=== PATIENT | female | born 1995 | race African-American/Black ===

== ENCOUNTER 2019-11-09 10:14 | Emergency (ER) | payer OTHER, MEDICAID ==
[2019-11-09 10:22] VITALS: BP 118/64
--- NOTE | 2019-11-09 11:04 | ER Document Report ---
ED Medical Screen (RME) - General Chief Complaint: Low Back Pain Stated Complaint: LOWER BACK PAIN/SPOTTING Time Seen by Provider: 11/09/19 10:55 TRAVEL OUTSIDE OF THE [place] IN LAST 30 DAYS: No - HPI Notes: 11/09/19 11:04 24-year-old female 2 para 1 who is 14 weeks presents the emergency room for complaints of lower back pain that is been occurring for the last 3 weeks, comes and goes, occurred while she was at work. Denies any trauma. Patient has not tried any heat or Tylenol. Patient has been seen by her primary care provider, they did not do any further evaluation, advised rest. Patient was also seen by her MANAGER FOREIGN who advised her to go to the primary care provider. Patient states that she started with right suprapubic pain only with urination last night and once this morning. Denies fevers, chills, chest pain,palpitations, shortness of breath, dyspnea, nausea, vomiting, diarrhea, abdominal pain, hematuria,blurred vision, double vision, loss of vision, speech changes, LH, dizziness, syncope, headaches, wheezing, ST, URI, neck pain, weakness, bowel or bladder dysfunction, saddle anesthesia, numbness or tingling in bilateral upper or lower extremities equally, muscle paralysis, weakness in bilateral upper or lower extremities equally or rash. - Related Data Allergies/Adverse Reactions: No Known Allergies Allergy (Unverified 11/09/19 10:41) Past Medical History - General Information source: Patient - Social History Chew tobacco use (# tins/day): No Frequency of alcohol use: None Drug Abuse: None Review of Systems - Review of Systems Constitutional: No symptoms reported EENT: No symptoms reported Cardiovascular: No symptoms reported Respiratory: No symptoms reported Gastrointestinal: No symptoms reported Genitourinary: No symptoms reported Female Genitourinary: No symptoms reported Musculoskeletal: See HPI Skin: No symptoms reported Hematologic/Lymphatic: No symptoms reported Neurological/Psychological: No symptoms reported Physical Exam - Vital signs Vitals: Temp Pulse Resp BP Pulse Ox 97.9 F 96 18 118/64 98 11/09/19 10:14 11/09/19 10:14 11/09/19 10:14 11/09/19 10:14 11/09/19 10:14 - Notes Notes: PHYSICAL EXAMINATION: reviewed vital signs by RN GENERAL: Well-appearing, well-nourished and in no acute distress. HEAD: Atraumatic, normocephalic. EYES: Pupils equal round and reactive to light, extraocular movements intact, conjunctiva are normal. ENT: Nares patent, oropharynx clear without exudates. Moist mucous membranes. NECK: Normal range of motion, supple without lymphadenopathy LUNGS: Breath sounds clear to auscultation bilaterally and equal. No wheezes rales or rhonchi. HEART: Regular rate and rhythm without murmurs ABDOMEN: Soft, nontender, nondistended abdomen. No guarding, no rebound. No masses appreciated. Female : deferred Musculoskeletal: Normal range of motion, no pitting or edema. No cyanosis.Pain with flexion and extension at 70 degrees, negative straight leg test Normal hip rotation. DTR +2 in BLE equally. Strength 5 out of 5 both distally and proximally to bilateral lower extremities normal motor and sensory function in BLE equally. Distal pulses + 2 BLE equally. Noted paraspinal tenderness near L2 and L3. Strength 5 out of 5 in bilateral lower extremities equally. no spinal tenderness. No CVA tenderness bilaterally. Femoral pulses + 2 bilaterally and equally. No abrasions, scars, lacerations, ecchymosis of any recent trauma. normal gait. NEUROLOGICAL: Cranial nerves grossly intact. Normal speech, normal gait. Normal sensory, motor exams PSYCH: Normal mood, normal affect. SKIN: Warm, Dry, normal turgor, no rashes or lesions noted. Course - Re-evaluation Re-evalutation: 11/09/19 11:06 Afebrile vital stable no distress. - Vital Signs Vital signs: Temp Pulse Resp BP Pulse Ox 97.9 F 96 18 118/64 98 11/09/19 10:21 11/09/19 10:21 11/09/19 10:21 11/09/19 10:21 11/09/19 10:21
--- NOTE | 2019-11-09 11:28 | ER Document Report ---
HPI - HPI Time Seen by Provider: 11/09/19 10:55 Pain Level: 3 Notes: 24-year-old female 2 para 1 who is 14 weeks presents the emergency room for complaints of lower back pain that is been occurring for the last 3 weeks, comes and goes, occurred while she was at work. Denies any trauma. Patient has not tried any heat or Tylenol. Patient has been seen by her primary care provider, they did not do any further evaluation, advised rest. Patient was also seen by her MANAGER MERCHANDISE who advised her to go to the primary care provider. Patient states that she started with right suprapubic pain only with urination last night and once this morning. Denies fevers, chills, chest pain,palpitations, shortness of breath, dyspnea, nausea, vomiting, diarrhea, abdominal pain, hematuria,blurred vision, double vision, loss of vision, speech changes, LH, dizziness, syncope, headaches, wheezing, ST, URI, neck pain, weakness, bowel or bladder dysfunction, saddle anesthesia, numbness or tingling in bilateral upper or lower extremities equally, muscle paralysis, weakness in bilateral upper or lower extremities equally or rash. REVIEW OF SYSTEMS:reviewed vital signs by RN CONSTITUTIONAL : Denies fever, chills, or sweats. Denies recent illness. EENT: Denies eye, ear, throat, or mouth pain or symptoms. Denies nasal or sinus congestion or discharge. Denies throat, tongue, or mouth swelling or difficulty swallowing. CARDIOVASCULAR: Denies chest pain. Denies palpitations or racing or irregular heart beat. Denies ankle edema. RESPIRATORY: Denies cough, cold, or chest congestion. Denies shortness of breath, difficulty breathing, or wheezing. GASTROINTESTINAL: Denies abdominal pain or distention. Denies nausea, vomiting, or diarrhea. Denies blood in vomitus, stools, or per rectum. Denies black, tarry stools. Denies constipation. GENITOURINARY: Denies difficulty urinating, painful urination, burning, frequency, blood in urine, or discharge. FEMALE GENITOURINARY: Denies vaginal bleeding, heavy or abnormal periods, irregular periods. Denies vaginal discharge or odor. MUSCULOSKELETAL: R sided paraspinal tenderness on palpation. Denies back or neck pain or stiffness. Denies joint pain or swelling. SKIN: Denies rash, lesions or sores. HEMATOLOGIC : Denies easy bruising or bleeding. LYMPHATIC: Denies swollen, enlarged glands. NEUROLOGICAL: Denies confusion or altered mental status. Denies passing out or loss of consciousness. Denies dizziness or lightheadedness. Denies headache. Denies weakness or paralysis or loss of use of either side. Denies problems with gait or speech. Denies sensory loss, numbness, or tingling. Denies seizures. PSYCHIATRIC: Denies anxiety or stress. Denies depression, suicidal ideation, or homicidal ideation. ALL OTHER SYSTEMS REVIEWED AND NEGATIVE. PHYSICAL EXAMINATION: GENERAL: Well-appearing, well-nourished and in no acute distress. HEAD: Atraumatic, normocephalic. EYES: Pupils equal round and reactive to light, extraocular movements intact, conjunctiva are normal. ENT: Nares patent, oropharynx clear without exudates. Moist mucous membranes. NECK: Normal range of motion, supple without lymphadenopathy LUNGS: Breath sounds clear to auscultation bilaterally and equal. No wheezes rales or rhonchi. HEART: Regular rate and rhythm without murmurs ABDOMEN: Soft, right suprapubic tenderness nondistended abdomen. No guarding, no rebound. No masses appreciated. Female : deferred Musculoskeletal: Normal range of motion, no pitting or edema. No cyanosis. Pain with flexion and extension at 90 degrees only, negative straight leg test bilaterally. Normal hip rotation. DTR +2 in BLE equally. Strength 5 out of 5 both distally and proximally to bilateral lower extremities normal motor and sensory function in BLE equally. Distal pulses + 2 BLE equally. Noted paraspinal tenderness near L2 and L3. Strength 5 out of 5 in bilateral lower extremities equally. no spinal tenderness. No CVA tenderness bilaterally. Femoral pulses + 2 bilaterally and equally. No abrasions, scars, lacerations, ecchymosis of any recent trauma. normal gait. NEUROLOGICAL: Cranial nerves grossly intact. Normal speech, normal gait. Normal sensory, motor exams PSYCH: Normal mood, normal affect. SKIN: Warm, Dry, normal turgor, no rashes or lesions noted. Dictation was performed using retickr voice recognition software 11/09/19 11:22 - REPRODUCTIVE Reproductive: REPORTS: : Past Medical History - General Information source: Patient - Social History Smoking Status: Never Smoker Chew tobacco use (# tins/day): No Frequency of alcohol use: None Drug Abuse: None Family History: Reviewed & Not Pertinent Patient has suicidal ideation: No Patient has homicidal ideation: No Vertical Provider Document - INFECTION CONTROL TRAVEL OUTSIDE OF THE [place] IN LAST 30 DAYS: No Course - Re-evaluation Re-evalutation: 11/09/19 16:26 Afebrile, vital signs stable no distress. Nurse's notes reviewed. Urinalysis does show leukoesterase and hematuria no proteinuria or ketones. Lower back pain likely musculoskeletal as is been occurring for the last 3 weeks. Denies any focal neurological deficits. Patient has been seen by MANAGER MERCHANDISE. Patient stated she did want a note for work for reoccurring lower back pain with her . Will start patient on oral antibiotic therapy and perform a urine culture, will call with results. Advised to continue medication, take Tylenol as needed, warm compresses to lower back, back stretches throughout the day. after performing a Medical Screening Examination, I estimate there is LOW risk for EXPANDING OR RUPTURED ABDOMINAL AORTIC ANEURYSM, CAUDA EQUINA SYNDROME, EPIDURAL MASS ABSCESS OR LESION(S), OSTEOMYELITIS,PERSONAL HISTORY OF CANCER, IMMUNOSUPPERSSSION, HISTORY OF IV DRUG USE, FRACTURE, CORD COMPERSSION, CANCER, RETROPERITONEAL BLEED, SPINAL EPIDURAL HEMATOMA, or HERNIATED DISK CAUSING SEVERE SPINAL STENOSIS, thus I consider the discharge disposition reasonable. I have reevaluated this patient multiple times and no significant life threatening changes are noted. The patient and I have discussed the diagnosis and risks, and we agree with discharging home and close follow-up. We also discussed returning to the Emergency Department immediately if new or worsening symptoms occur with the understanding that symptoms and presentations can change. We have discussed the symptoms which are most concerning (e.g., saddle anesthesia, urinary or bowel incontinence or retention, changing or worsening pain) that necessitate immediate return. - Vital Signs Vital signs: Temp Pulse Resp BP Pulse Ox 97.9 F 96 18 118/64 98 11/09/19 10:21 11/09/19 10:21 11/09/19 10:21 11/09/19 10:21 11/09/19 10:21 Discharge - Discharge Clinical Impression: Dysuria, Strain of fascia of lower back Condition: Stable Disposition: HOME, SELF-CARE Instructions: Low Back Pain ([facility]), Muscle Strain ([facility]), ([facility]), Urinary Tract Infection ([facility]), Warm Packs ([facility]) Additional Instructions: Urinalysis does show that you have a UTI, will culture urine. Advised to take Tylenol for lower back pain, apply heat 20 minutes on 20 minutes off, stretching of lower back. Please take antibiotics as directed. Follow up with obgyn and pcp within 24 hours as directed. Return immediately for any new or worsening symptoms. Follow up with primary care provider, call tomorrow to make followup appointment. Prescriptions: Nitrofurantoin Macrocrystal [Macrodantin] 100 mg PO BID #20 capsule Forms: Return to Work Referrals: CATARINO PANTOJA MD [ACTIVE STAFF] - Follow up as needed PILAR MARIN DO [ACTIVE STAFF] - Follow up as needed
[2019-11-09 11:45] LABS: APPEARANCE,URINE CLEAR; BILIRUBIN,URINE NEGATIVE (NEGATIVE); COLOR,URINE STRAW; GLUCOSE, URINE NEGATIVE (NEGATIVE); KETONES,URINE NEGATIVE (NEGATIVE); LEUKOCYTE ESTERASE,URINE SMALL (NEGATIVE); NITRITE,URINE NEGATIVE (NEGATIVE); PROTEIN,URINE NEGATIVE (NEGATIVE); URINE SPECIFIC GRAVITY 1.003; UROBILINOGEN,URINE NEGATIVE mg/dL (<2.0)
== END 2019-11-09 12:09 | disposition home or self-care (01) ==
LOC: ER 10:14
DX: O9A.212 Injury, poisoning and certain other consequences of external causes complicating pregnancy, second trimester (principal); S39.012A Strain of muscle, fascia and tendon of lower back, initial encounter; X58.XXXA Exposure to other specified factors, initial encounter; O26.892 Other specified pregnancy related conditions, second trimester; R30.0 Dysuria; R31.9 Hematuria, unspecified; Z3A.14 14 weeks gestation of pregnancy
CPT/HCPCS: 81001; 99283

== ENCOUNTER 2020-03-26 13:47 | Inpatient (IN) | payer MEDICAID ==
[2020-03-26 15:20] LABS: APPEARANCE,URINE TURBID; BILIRUBIN,URINE NEGATIVE (NEGATIVE); COLOR,URINE AMBER; GLUCOSE, URINE NEGATIVE (NEGATIVE); KETONES,URINE NEGATIVE (NEGATIVE); LEUKOCYTE ESTERASE,URINE SMALL (NEGATIVE); NITRITE,URINE NEGATIVE (NEGATIVE); PROTEIN,URINE 30 mg/dL (NEGATIVE); URINE SPECIFIC GRAVITY 1.024
[2020-03-26 15:37] LABS: URINE AMPHETAMINES SCREEN NEGATIVE; URINE BARBITURATES SCREEN NEGATIVE; URINE BENZODIAZEPINES SCREEN NEGATIVE; URINE COCAINE SCREEN NEGATIVE; URINE MARIJUANA (THC) SCREEN NEGATIVE; URINE METHADONE SCREEN NEGATIVE; URINE PHENCYCLIDINE SCREEN NEGATIVE
[2020-03-26] MEDS ORDERED: BETAMET ACET/BETAMET NA INJ 6 MG/1 ML ONE (16:03)
[2020-03-26] MEDS ORDERED: MAGNESIUM SULFATE 20 GM/500 ML RTUINJ IV ONE (16:04)
[2020-03-26] MEDS ORDERED: MAGNESIUM SULFATE 4 GM/100 ML RTUPB IV ONE ×2 (16:04→16:05)
[2020-03-26] MEDS ORDERED: RINGERS SOLUTION,LACTATED 1,000 ML IV PRN (16:18)
[2020-03-26] MEDS ORDERED: TERBUTALINE SULFATE INJ/PF 1 MG/1 ML SDV SUBCUT ONE (16:33)
[2020-03-26] MEDS ORDERED: TERBUTALINE SULFATE INJ/PF 1 MG/1 ML SDV ONE (16:34)
--- NOTE | 2020-03-26 16:45 | Admission Physical ---
Datetime Report Generated by CPN: 03/26/2020 16:45 CURRENT ADMISSION Chief Complaint: Uterine Contractions Indication for Induction: Not Applicable Admit Impression : , Intrauterine Admit Impression- Other: possible active labor at 33+6 Admit Plan: Admit to Unit; Initiate Labor Protocol ALLERGIES Medication Allergies: No Medication Allergies: No Known Allergies (11/09/2019) Latex: No Latex Allergies OBSTETRICAL HISTORY EDC: 05/08/2020 00:00 : 2 Para: 1 Term: 1 : 0 SAB: 0 IAB: 0 Ectopic: 0 Livin Cesareans: 0 VBACs: 0 Multiple Births: 0 SEE RECORDS Alcohol: No Marijuana : No Cocaine: No Other Illicit Drugs: No Cigarettes: Never Smoker. [id number] PHYSICAL EXAM General: Normal HEENT: Normal Neurologic: Normal Thyroid: Deferred Heart: Normal Lungs: Normal Breast: Deferred Back: Normal Abdomen: Normal Genitourinary Exam: Normal Extremities: Normal DTRs: Deferred Pelvic Type: Adequate Vital Signs: Reviewed VAGINAL EXAM Dilatation: 2 Effacement: 70 Station: -1 Contraction Comments: Q2mins MEMBRANES Pooling: Negative Membranes: Intact FETUS A EGA: 33.6 Monitoring: External US FHR- Baseline: 130 Variability: Moderate 6-25bpm Accelerations: 15X15 Decelerations: None FHR Category: Category I Presentation: Vertex Presentation- Other: by FABIOLA NUNN Admit Comment: with previous deliver at 39weeks. presents today for decreased movement and back pain. found to have contractions and cervical dilation with cervical change from /-1, firm, mid position to ./-1, soft. comgt with dr kearney. P: magnesium sulfate, betamethasone, terbutaline, overnight stay for observation INFORMED CONSENT Assignment: Evette Kearney MD Signature: with User ID: [email or web address] : with User ID: [email or web address]
[2020-03-26 16:55] LABS: ABSOLUTE LYMPHOCYTES (AUTO) 2.4 10^3/uL (0.5-4.7); ABSOLUTE MONOCYTES (AUTO) 0.8 10^3/uL (0.1-1.4); ABSOLUTE NEUT (AUTO) 6.2 10^3/uL (1.7-8.2); BASOPHILS % (AUTO) 0.4 % (0-2); EOSINOPHILS % (AUTO) 0.1 % (0-6); HEMATOCRIT 33.2 % (36.0-47.0); HEMOGLOBIN 10.8 g/dL (12.0-15.5); LYMPHOCYTES % (AUTO) 25.4 % (13-45); MEAN CORPUSCULAR HEMOGLOBIN 20.2 pg (27.0-33.4); MEAN CORPUSCULAR HGB CONC 32.6 g/dL (32.0-36.0); MONOCYTES % (AUTO) 8.7 % (3-13); PLATELET COUNT 146 10^3/uL (150-450); RED BLOOD COUNT 5.34 10^6/uL (3.72-5.28); RED CELL DISTRIBUTION WIDTH 18.1 % (11.5-14.0); SEGMENTED NEUTROPHILS % (AUTO) 65.4 % (42-78); TOTAL CELLS COUNTED % (AUTO) 100 %; WHITE BLOOD COUNT 9.5 10^3/uL (4.0-10.5)
[2020-03-26] MEDS ORDERED: MISOPROSTOL 0.2 MG TABLET ONE (16:57)
[2020-03-26] MEDS ORDERED: OXYTOCIN/NORMAL SALINE 0 UNIT/0 ML RTUINJ ONE (16:57)
[2020-03-26] MEDS ORDERED: OXYTOCIN 10 UNIT/ML VIAL ONE (16:57)
[2020-03-26] MEDS ORDERED: LIDOCAINE 1% INJ-PF (10 MG/ML) 30 ML SDV ONE (16:57)
[2020-03-26] MEDS ORDERED: PENICILLIN G POTASSIUM 5,000,000 UNIT in DEXTROSE 5%-WATER 100 ML IV ONE (17:03)
[2020-03-26] MEDS ORDERED: PENICILLIN G-K 5 MILLION UNIT VIAL ONE ×2 (17:06→20:52)
[2020-03-26] MEDS: MAGNESIUM SULFATE 20 GM/500 ML RTUINJ IV PRN (17:13)
[2020-03-26 17:25] LABS: ANISOCYTOSIS 2+
[2020-03-26 17:26] LABS: HYPOCHROMASIA 3+; PLATELET COMMENT DECREASED
[2020-03-26 17:31] LABS: OVALOCYTES SLIGHT; POIKILOCYTOSIS 1+; TARGET CELLS SLIGHT
[2020-03-26 17:33] LABS: MEAN CORPUSCULAR VOLUME 62 fl (80-97)
[2020-03-26 18:19] LABS: CHLAM PCR NOT DETECTED (NOT DETECT)
[2020-03-26] MEDS: PENICILLIN G POTASSIUM 2,500,000 UNIT in DEXTROSE 5%-WATER 50 ML IV SCH (20:56)
[2020-03-27] MEDS: PENICILLIN G POTASSIUM 2,500,000 UNIT in DEXTROSE 5%-WATER 50 ML IV SCH ×4 (00:57→13:16)
[2020-03-27] MEDS ORDERED: MAGNESIUM SULFATE 20 GM/500 ML RTUINJ IV ONE ×2 (03:12→13:11)
[2020-03-27] MEDS: MAGNESIUM SULFATE 20 GM/500 ML RTUINJ IV PRN ×2 (03:15→13:17)
[2020-03-27] MEDS ORDERED: ACETAMINOPHEN 325 MG TABLET ONE ×2 (03:58→09:57)
[2020-03-27] MEDS ORDERED: ACETAMINOPHEN 325 MG TABLET PO PRN (09:53)
[2020-03-27] MEDS ORDERED: ONDANSETRON HCL INJ/PF 4 MG/2 ML SDV IV ONE (09:55)
[2020-03-27] MEDS ORDERED: ONDANSETRON HCL INJ/PF 4 MG/2 ML SDV ONE (09:57)
[2020-03-27] MEDS ORDERED: BETAMET ACET/BETAMET NA INJ 6 MG/1 ML IM SCH (16:15)
[2020-03-27] MEDS ORDERED: BETAMET ACET/BETAMET NA INJ 6 MG/1 ML ONE (16:27)
[2020-03-27] MEDS ORDERED: ZOLPIDEM TARTRATE 5 MG TABLET PO PRN (20:10)
--- NOTE | 2020-03-27 20:22 | PDOC PROGRESS REPORT ---
Subjective Progress Note for:: 03/27/20 Subjective:: doing well, rare contractions now, no c/o at this time except mild right lower back pain. +FM, no VB, no lof Reason For Visit: CONTRACTIONS Physical Exam - Physical Exam Vital Signs: Intake & Output 03/26/20 03/27/20 03/28/20 06:59 06:59 06:59 Intake Total 500 500 Balance 500 500 Weight 76.1 kg General appearance: PRESENT: no acute distress, well-developed, well-nourished Head exam: PRESENT: atraumatic, normocephalic Respiratory exam: PRESENT: clear to auscultation noam, symmetrical, unlabored Cardiovascular exam: PRESENT: RRR. ABSENT: diastolic murmur, rubs, systolic murmur GI/Abdominal exam: PRESENT: normal bowel sounds, soft. ABSENT: distended, guarding, mass, organolmegaly, rebound, tenderness Rectal exam: PRESENT: deferred Extremities exam: PRESENT: full ROM. ABSENT: calf tenderness, clubbing, pedal edema Neurological exam: PRESENT: alert, awake, oriented to person, oriented to place, oriented to time, oriented to situation, CN II-XII grossly intact. ABSENT: motor sensory deficit Psychiatric exam: PRESENT: appropriate affect, normal mood. ABSENT: homicidal ideation, suicidal ideation Skin exam: PRESENT: dry, intact, warm. ABSENT: cyanosis, rash - Obstetrical Exam Dilation (cm): 2 Effacement (%): 70 Station: -1 Result Laboratory Results: 03/26/20 16:19 03/26/20 17:27 Vaginal/Anorectal Group B Streptococcus Culture - Final GROUP B BETA HEMOLYTIC STREPTOCOCCUS RECOVERED Status: Imported from PACS Assessment & Plan - Diagnosis (1) labor in third trimester without delivery Is this a current diagnosis for this admission?: Yes Plan: Steroid complete at 1630 today. Stop PCN and magnesium and monitored for 2 hours with rare contractions. Will move to the floor for continued monitoring. If doing well and no cervical change tomorrow then would be ok to go home. - Time Time Spent with patient: 15-24 minutes Medications reviewed and adjusted accordingly: Yes Anticipated discharge: Home Within: within 24 hours - Inpatient Certification Based on my medical assessment, after consideration of the patient's comorbidities, presenting symptoms, or acuity I expect that the services needed warrant INPATIENT care.: Yes I certify that my determination is in accordance with my understanding of Medicare's requirements for reasonable and necessary INPATIENT services [42 CFR 412.3e].: Yes Medical Necessity: Need Close Monitoring Due to Risk of Patient Decompensation, Risk of Complication if Not Cared For in Hospital
[2020-03-27] MEDS ORDERED: CYCLOBENZAPRINE HCL 10 MG TABLET PO PRN (20:23)
[2020-03-27] MEDS ORDERED: CYCLOBENZAPRINE HCL 10 MG TABLET ONE (22:19)
[2020-03-28 08:20] VITALS: BP 103/50
[2020-03-28] MEDS: PENICILLIN G POTASSIUM 2,500,000 UNIT in DEXTROSE 5%-WATER 50 ML IV SCH (08:51)
[2020-03-28] MEDS ORDERED: PRENATAL VITAMIN W DHA CAPSULE PO SCH (10:00)
--- NOTE | 2020-03-28 10:40 | PDOC DISCHARGE SUMMARY ---
Impression - Admit/DC Date/PCP Admission Date/Primary Care Provider: 03/26/20 15:51 ROHAN ALDRIDGE MD Discharge Date: 03/28/20 - Discharge Diagnosis (1) labor in third trimester without delivery Is this a current diagnosis for this admission?: Yes - Assessment Summary: no further cervical change and rare contraction - Additional Information Resuscitation Status: Full Code Discharge Diet: As Tolerated Discharge Activity: Balance Activity w/Rest, No Lifting/Push/Pulling, Pelvic Rest Referrals: ROHAN ALDRIDGE MD [Primary Care Provider] - Home Medications: Pnv 102/Iron/Folate 1/Dss/Dha [Vitafol Fe+ Docusate Combo Pck] 1 each PO DAILY 03/26/20 History of Present Illiness History of Present Illness: LEE ANN CHRISTOPHER is a 24 year old female Physical Exam - Physical Exam Vital Signs: Temp Pulse Resp BP Pulse Ox 97.5 F 80 16 103/50 L 98 03/28/20 07:32 03/28/20 07:32 03/28/20 07:32 03/28/20 07:32 03/28/20 07:32 Intake & Output 03/27/20 03/28/20 03/29/20 06:59 06:59 06:59 Intake Total 500 740 Output Total 450 Balance 500 290 Weight 76.1 kg - Obstetrical Exam Station: -1 Results Laboratory Results: WBC 9.5 10^3/uL (4.0-10.5) 03/26/20 16:19 RBC 5.34 10^6/uL (3.72-5.28) H 03/26/20 16:19 Hgb 10.8 g/dL (12.0-15.5) L 03/26/20 16:19 Hct 33.2 % (36.0-47.0) L 03/26/20 16:19 MCV 62 fl (80-97) L 03/26/20 16:19 MCH 20.2 pg (27.0-33.4) L 03/26/20 16:19 MCHC 32.6 g/dL (32.0-36.0) 03/26/20 16:19 RDW 18.1 % (11.5-14.0) H 03/26/20 16:19 Plt Count 146 10^3/uL (150-450) L 03/26/20 16:19 Lymph % (Auto) 25.4 % (13-45) 03/26/20 16:19 Wilcox % (Auto) 8.7 % (3-13) 03/26/20 16:19 Eos % (Auto) 0.1 % (0-6) 03/26/20 16:19 Baso % (Auto) 0.4 % (0-2) 03/26/20 16:19 Absolute Neuts (auto) 6.2 10^3/uL (1.7-8.2) 03/26/20 16:19 Absolute Lymphs (auto) 2.4 10^3/uL (0.5-4.7) 03/26/20 16:19 Absolute Monos (auto) 0.8 10^3/uL (0.1-1.4) 03/26/20 16:19 Absolute Eos (auto) 0.0 10^3/uL (0.0-0.6) 03/26/20 16:19 Absolute Basos (auto) 0.0 10^3/uL (0.0-0.2) 03/26/20 16:19 Seg Neutrophils % 65.4 % (42-78) 03/26/20 16:19 Platelet Comment DECREASED 03/26/20 16:19 Hypochromasia 3+ 03/26/20 16:19 Poikilocytosis 1+ 03/26/20 16:19 Anisocytosis 2+ 03/26/20 16:19 Microcytosis 3+ 03/26/20 16:19 Target Cells SLIGHT 03/26/20 16:19 Ovalocytes SLIGHT 03/26/20 16:19 Urine Color VIVIAN 03/26/20 14:00 Urine Appearance TURBID 03/26/20 14:00 Urine pH 6.0 (5.0-9.0) 03/26/20 14:00 Ur Specific Adams 1.024 03/26/20 14:00 Urine Protein 30 mg/dL (NEGATIVE) H 03/26/20 14:00 Urine Glucose (UA) NEGATIVE mg/dL (NEGATIVE) 03/26/20 14:00 Urine Ketones NEGATIVE mg/dL (NEGATIVE) 03/26/20 14:00 Urine Blood NEGATIVE (NEGATIVE) 03/26/20 14:00 Urine Nitrite NEGATIVE (NEGATIVE) 03/26/20 14:00 Urine Bilirubin NEGATIVE (NEGATIVE) 03/26/20 14:00 Urine Urobilinogen 2.0 mg/dL (<2.0) H 03/26/20 14:00 Ur Leukocyte Esterase SMALL (NEGATIVE) H 03/26/20 14:00 Urine WBC (Auto) 8 /HPF 03/26/20 14:00 Urine RBC (Auto) 1 /HPF 03/26/20 14:00 Urine Bacteria (Auto) 1+ /HPF 03/26/20 14:00 Squamous Epi Cells Auto 9 /HPF 03/26/20 14:00 Urine Mucus (Auto) MANY /LPF 03/26/20 14:00 Urine Ascorbic Acid NEGATIVE (NEGATIVE) 03/26/20 14:00 Amniotic Ferning Test FERN PATTERN ABSENT (ABSENT) 03/26/20 20:12 Membranes Rupture NEGATIVE (NEGATIVE) 03/26/20 20:12 Urine Opiates Screen NEGATIVE 03/26/20 14:00 Urine Methadone Screen NEGATIVE 03/26/20 14:00 Ur Barbiturates Screen NEGATIVE 03/26/20 14:00 Ur Phencyclidine Scrn NEGATIVE 03/26/20 14:00 Ur Amphetamines Screen NEGATIVE 03/26/20 14:00 U Benzodiazepines Scrn NEGATIVE 03/26/20 14:00 Urine Cocaine Screen NEGATIVE 03/26/20 14:00 U Marijuana (THC) Screen NEGATIVE 03/26/20 14:00 RPR NONREACTIVE (NONREACTIVE) 03/26/20 16:19 Chlamydia DNA (PCR) NOT DETECTED (NOT DETECT) 03/26/20 16:10 N.gonorrhoeae DNA (PCR) NOT DETECTED (NOT DETECT) 03/26/20 16:10 Slides for Path Review SEE COMMENT 03/26/20 16:19 Blood Type A POSITIVE 03/26/20 16:19 Antibody Screen NEGATIVE 03/26/20 16:19 Stroke Is this a Stroke Patient?: No Acute Heart Failure - Is this a Heart Failure Patient?: No
== END 2020-03-28 11:26 | disposition home or self-care (01) | DRG 833 ==
LOC: LC 13:47 → LR 15:51 → OBSVTOIN 15:51 → 2S 03-27 20:48
PROVIDERS: ADMIT Obstetrics & Gynecology; ATTEND Obstetrics & Gynecology
DX: O60.03 Preterm labor without delivery, third trimester (principal); O36.8190 Decreased fetal movements, unspecified trimester, not applicable or unspecified; Z3A.33 33 weeks gestation of pregnancy
CPT/HCPCS: 36415; 59025; 80307; 81001; 84112; 85025; 86592; 86850; 86900; 86901; 87077; 87081; 87086; 87491; 87591; J0702; J2405; J2540; J2590; J3105; J3475; J3490; J7060; Q0114

== ENCOUNTER 2020-03-29 08:58 | Inpatient (IN) | payer OTHER, MEDICAID ==
[2020-03-29 09:40] LABS: APPEARANCE,URINE CLEAR; BILIRUBIN,URINE NEGATIVE (NEGATIVE); COLOR,URINE YELLOW; GLUCOSE, URINE NEGATIVE (NEGATIVE); KETONES,URINE TRACE mg/dL (NEGATIVE); LEUKOCYTE ESTERASE,URINE SMALL (NEGATIVE); NITRITE,URINE NEGATIVE (NEGATIVE); PROTEIN,URINE 30 mg/dL (NEGATIVE); URINE SPECIFIC GRAVITY 1.014
[2020-03-29] MEDS ORDERED: RINGERS SOLUTION,LACTATED 1,000 ML IV ONE (09:51)
[2020-03-29 09:53] LABS: URINE AMPHETAMINES SCREEN NEGATIVE; URINE BARBITURATES SCREEN NEGATIVE; URINE BENZODIAZEPINES SCREEN NEGATIVE; URINE COCAINE SCREEN NEGATIVE; URINE MARIJUANA (THC) SCREEN NEGATIVE; URINE METHADONE SCREEN NEGATIVE; URINE PHENCYCLIDINE SCREEN NEGATIVE
[2020-03-29] MEDS ORDERED: PENICILLIN G POTASSIUM 5,000,000 UNIT in DEXTROSE 5%-WATER 100 ML IV ONE (10:00)
[2020-03-29] MEDS ORDERED: PENICILLIN G-K 5 MILLION UNIT VIAL ONE (10:00)
[2020-03-29] MEDS ORDERED: OXYTOCIN/NORMAL SALINE 20 UNIT/1,000 ML RTUINJ IV PRN (10:17)
[2020-03-29] MEDS ORDERED: RINGERS SOLUTION,LACTATED 1,000 ML IV PRN (10:36)
--- NOTE | 2020-03-29 10:41 | Warning Signs in Babies ---
VOD Warning Signs Datetime Report Generated by [facility]: 03/29/2020 10:41 VOD#608 -Warning Signs in Babies: Viewed with Parent(s)/Family (03/29/2020 10:40:Grayson Schneider RN)
[2020-03-29 10:47] LABS: ABSOLUTE LYMPHOCYTES (AUTO) 2.2 10^3/uL (0.5-4.7); ABSOLUTE MONOCYTES (AUTO) 1.1 10^3/uL (0.1-1.4); ABSOLUTE NEUT (AUTO) 7.5 10^3/uL (1.7-8.2); BASOPHILS % (AUTO) 0.2 % (0-2); HEMATOCRIT 27.6 % (36.0-47.0); HEMOGLOBIN 9.1 g/dL (12.0-15.5); LYMPHOCYTES % (AUTO) 19.9 % (13-45); MEAN CORPUSCULAR HEMOGLOBIN 20.2 pg (27.0-33.4); MEAN CORPUSCULAR VOLUME 61 fl (80-97); MONOCYTES % (AUTO) 10.4 % (3-13); PLATELET COUNT 128 10^3/uL (150-450); RED BLOOD COUNT 4.53 10^6/uL (3.72-5.28); RED CELL DISTRIBUTION WIDTH 17.3 % (11.5-14.0); SEGMENTED NEUTROPHILS % (AUTO) 69.5 % (42-78); TOTAL CELLS COUNTED % (AUTO) 100 %; WHITE BLOOD COUNT 10.8 10^3/uL (4.0-10.5)
[2020-03-29] MEDS ORDERED: MISOPROSTOL 0.2 MG TABLET ONE (10:48)
[2020-03-29] MEDS ORDERED: LIDOCAINE 1% INJ-PF (10 MG/ML) 30 ML SDV ONE (10:48)
[2020-03-29] MEDS ORDERED: OXYTOCIN/NORMAL SALINE 20 UNIT/1,000 ML RTUINJ ONE (10:48)
[2020-03-29] MEDS ORDERED: OXYTOCIN 10 UNIT/ML VIAL ONE (10:48)
[2020-03-29 11:20] LABS: ANISOCYTOSIS 1+; HYPOCHROMASIA 2+; POIKILOCYTOSIS 1+; POLYCHROMASIA SLIGHT
[2020-03-29 11:21] LABS: OVALOCYTES 1+; TEAR DROP CELLS SLIGHT
[2020-03-29 11:23] LABS: PLATELET COMMENT DECREASED
--- NOTE | 2020-03-29 13:34 | Admission Physical ---
Datetime Report Generated by CPN: 03/29/2020 13:33 CURRENT ADMISSION Chief Complaint: Uterine Contractions; Suspected Ruptured Membranes Indication for Induction: PROM Admit Impression : , Intrauterine ; Active Labor; Ruptured Membranes Admit Impression- Other: possible active labor at 33+6 Admit Plan: Admit to Unit; Initiate Labor Protocol; Initiate Labor Augmentation Protocol ALLERGIES Medication Allergies: No Medication Allergies: No Known Allergies (03/29/2020) Latex: Latex Allergies Food Allergies: None Environmental Allergies: None OBSTETRICAL HISTORY EDC: 05/08/2020 00:00 : 2 Para: 1 Term: 1 : 0 SAB: 0 IAB: 0 Ectopic: 0 Livin Cesareans: 0 VBACs: 0 Multiple Births: 0 Gestational Diabetes: No Rh Sensitization: No Incompetent Cervix: No YOHANA: No Infertility: No ART Treatment: No Uterine Anomaly: No IUGR: No Hx Previous C/S: No Macrosomia: No Hx Loss/Stillborn: No PIH: No Hx : No Placenta Previa/Abruption: No Depression/PP Depression: No PTL/PROM: No Post Hemorrhage: No Current Procedures: Ultrasound Obstetrical History Comments: 2016 39.6 6lb 11oz male G2- current SEE RECORDS Alcohol: No Marijuana : No Cocaine: No Other Illicit Drugs: No Cigarettes: Never Smoker. [id number] MEDICAL HISTORY Diabetes: No Blood Transfusion: No Pulmonary Disease (Asthma, TB): No Breast Disease: No Hypertension: No [employer] Bone Surgery: No Heart Disease: No Hosp/Surgery: Yes Autoimmune Disorder: No Anesthetic Complications: No Kidney Disease: No Abnormal Pap Smear: No Neuro/Epilepsy: No Psychiatric Disorders: No Other Medical Diseases: No Hepatitis/Liver Disease: No Significant Family History: No Varicosities/Phlebitis: No Trauma/Violence : No Thyroid Dysfunction: No Medical History Comments: Childbirth INFECTIOUS HISTORY Gonorrhea: No Genital Herpes: No Chlamydia: No Tuberculosis: No Syphilis: No Hepatitis: No HIV/AIDS Exposure: No Rash or Viral Illness: No HPV: No PHYSICAL EXAM General: Normal HEENT: Normal Neurologic: Normal Thyroid: Normal Heart: Normal Lungs: Normal Breast: Normal Back: Normal Abdomen: Normal Genitourinary Exam: Normal Extremities: Normal DTRs: Normal Pelvic Type: Adequate Vital Signs: Reviewed; Within Normal Limits VAGINAL EXAM Dilatation: 2 Effacement: 70 Station: -1 Contraction Comments: Q4-5 minutes MEMBRANES Pooling: Positive Membranes: Ruptured Amniotic Fluid Color: Clear FETUS A EGA: 34.2 Monitoring: External US FHR- Baseline: 145 Variability: Moderate 6-25bpm Accelerations: 15X15 Decelerations: None FHR Category: Category I Presentation: Vertex Presentation- Other: by FABIOLA NUNN Admit Comment: at 34.3 wks EGA with SROM this am at 0800 at home. She declines bleeding. Reports good FM. FLuid looked clear No Fever, chills, n/v She had steroids (BMZ x) on 03/27/20 when she was seen in triage for labor rule out. GBS done then and + -Admit to LDR -NPO and IVFs LR at 125 cc/hr -CEFM and toco -PCN for GBS prophylaxis -RUpture confirmed -s/p BMZ x2 -Anticipate PLANS FOR LABOR AND DELIVERY Labor and Delivery: None Pain Management: Epidural Feeding Preference: Formula Benefit of Breast Feed Discussed: Yes Circumcision: Yes INFORMED CONSENT Informed Consent Obtained: Vaginal Delivery; Induction of Labor; Risks, Benefits and Alternatives Discussed Assignment: Evette Gomez MD Signature: with User ID: Sarah : with User ID: [email or web address]
[2020-03-29] MEDS: PENICILLIN G POTASSIUM 2,500,000 UNIT in DEXTROSE 5%-WATER 50 ML IV SCH ×3 (14:12→23:15)
[2020-03-30] MEDS ORDERED: CALCIUM CARBONATE 500 MG TAB.CHEW PO ONE (01:50)
[2020-03-30] MEDS: PENICILLIN G POTASSIUM 2,500,000 UNIT in DEXTROSE 5%-WATER 50 ML IV SCH ×4 (02:19→14:03)
[2020-03-30] MEDS ORDERED: OXYTOCIN/NORMAL SALINE 20 UNIT/1,000 ML RTUINJ ONE ×2 (03:25→18:30)
[2020-03-30] MEDS ORDERED: OXYTOCIN/NORMAL SALINE 20 UNIT/1,000 ML RTUINJ IV PRN ×2 (03:37→18:46)
--- NOTE | 2020-03-30 07:48 | PDOC PROGRESS REPORT ---
Subjective Progress Note for:: 03/29/20 Reason For Visit: Doing well. Good FM. No VB or LOF. She noted fluid this am around 0800 and came in for check. Found positive her for SROM . Pitocin low dose began at 1100. GBS positive on PCN S/p BMZ earlier in the week (03/27/20) Physical Exam - Physical Exam Vital Signs: Intake & Output 03/29/20 03/30/20 03/31/20 06:59 06:59 06:59 Weight 75.6 kg General appearance: PRESENT: no acute distress, cooperative GI/Abdominal exam: PRESENT: soft Skin exam: PRESENT: dry, warm - Gynecological Exam Cervix: other - Cvx Result Laboratory Results: 03/29/20 10:31 03/29/20 03/29/20 03/29/20 09:13 10:31 10:31 WBC 10.8 H RBC 4.53 Hgb 9.1 L Hct 27.6 L MCV 61 L MCH 20.2 L MCHC 33.0 RDW 17.3 H Plt Count 128 L Seg Neutrophils % 69.5 Urine Color YELLOW Urine Appearance CLEAR Urine pH 8.0 Ur Specific [place] 1.014 Urine Protein 30 H Urine Glucose (UA) NEGATIVE Urine Ketones TRACE H Urine Blood NEGATIVE Urine Nitrite NEGATIVE Ur Leukocyte Esterase SMALL H Urine WBC (Auto) 12 Urine RBC (Auto) 2 Blood Type A POSITIVE Antibody Screen NEGATIVE Assessment & Plan - Time Time Spent with patient: Less than 15 minutes - Plan Summary Plan Summary: [id number] at 34.3 wks EGA PPROM GBS pos: PCN Pitocin low dose prorotcol. Nursery notified Hx one prior , anticipate Cat 1 NST Desires epidural for pain management
[2020-03-30] MEDS ORDERED: CEFAZOLIN 2 GM/D5W RTU 2 GM/50 ML RTUPB IV SCH (08:00)
[2020-03-30] MEDS ORDERED: CEFAZOLIN 1 GM/D5W RTU 2 GM/100 ML RTUPB IV ONE (08:05)
[2020-03-30] MEDS ORDERED: PROMETHAZINE HCL INJ 25 MG/1 ML VIAL IV ONE (13:01)
[2020-03-30] MEDS ORDERED: NALBUPHINE HCL INJ 10 MG/1 ML AMPULE IV ONE (13:01)
[2020-03-30] MEDS ORDERED: NALBUPHINE HCL INJ 10 MG/1 ML AMPULE ONE ×2 (13:08→17:50)
[2020-03-30] MEDS ORDERED: PROMETHAZINE HCL INJ 25 MG/1 ML VIAL ONE (13:08)
[2020-03-30] MEDS ORDERED: CEFAZOLIN SODIUM 2 GM in DEXTROSE 5%-WATER 100 ML IV SCH (15:00)
[2020-03-30] MEDS ORDERED: DINOPROSTONE 10 MG VAGINAL INSERT.SR PV ONE (16:12)
[2020-03-30] MEDS ORDERED: DINOPROSTONE 10 MG VAGINAL INSERT.SR ONE (16:28)
[2020-03-30] MEDS ORDERED: NALBUPHINE HCL INJ 10 MG/1 ML AMPULE INJ ONE (17:45)
[2020-03-30] MEDS ORDERED: OXYTOCIN 10 UNIT/ML VIAL ONE (18:30)
[2020-03-30] MEDS ORDERED: DIPHENHYDRAMINE HCL 25 MG CAPSULE PO PRN (18:46)
[2020-03-30] MEDS ORDERED: GLYCERIN/WITCH HAZEL LEAF 1 EACH MED..WIPE TP PRN (18:46)
[2020-03-30] MEDS ORDERED: PROMETHAZINE HCL 25 MG TABLET PO PRN (18:46)
[2020-03-30] MEDS ORDERED: NA PHOS,M-B/NA PHOS,DI-BA (ADULT) 133 ML ENEMA PR PRN (18:46)
[2020-03-30] MEDS ORDERED: PROMETHAZINE HCL INJ 25 MG/1 ML VIAL IV PRN (18:46)
[2020-03-30] MEDS ORDERED: DIPH/PERTUSS(ACELL)/TETANUS VAC/PF 0.5 ML SYR (>=10YO) IM PRN (18:46)
[2020-03-30] MEDS ORDERED: ZOLPIDEM TARTRATE 5 MG TABLET PO PRN (18:46)
[2020-03-30] MEDS ORDERED: PROMETHAZINE HCL 25 MG SUPP.RECT PR PRN (18:46)
[2020-03-30] MEDS ORDERED: DIBUCAINE 1% OINTMENT 28 GM TP PRN (18:46)
[2020-03-30] MEDS ORDERED: MAGNESIUM HYDROXIDE SUSP 30 ML UDCUP PO PRN (18:46)
[2020-03-30] MEDS ORDERED: ACETAMINOPHEN WITH CODEINE #3 TABLET PO PRN ×2 (18:46)
[2020-03-30] MEDS ORDERED: MEASLES,MUMPS&RUBELLA VACC/PF 0.5 ML VIAL SUBCUT PRN (18:46)
[2020-03-30] MEDS ORDERED: PSEUDOEPHEDRINE HCL 30 MG TABLET PO PRN (18:46)
[2020-03-30] MEDS ORDERED: ACETAMINOPHEN 650 MG SUPP.RECT PR PRN (18:46)
--- NOTE | 2020-03-30 20:35 | Delivery Summary ---
Del Sum A-C Datetime Report Generated by CPN: 03/30/2020 20:35 DELIVERY PERSONNEL DELIVERY PERSONNEL: [id number] Delivery Doctor:: Evette Gomez MD SWIMMER:: Cody Quintero, SWIMMER Labor and Delivery Nurse:: Grayson Schneider RNschool services officer Nurse:: Madelyn Wagner RN Nursery Nurse:: Shannon Parekh RN Supervisor Statement Clerks/SWITCHBOARD OPERATOR RECEPTIONIST: Anneliese Costa, GROUNDS FOREMAN MATERNAL INFORMATION Delivery Anesthesia: None Medications After Delivery: Pitocin Drip 20 Units/1000ml NSS Estimated Blood Loss (ml): 100 Maternal Complications: Prolonged Labor > 20 Hrs LABOR SUMMARY EDC: 05/08/2020 00:00 No. Babies in Womb: 1 Attempted: No Labor Anesthesia: IV Sedation LABOR INFORMATION Reason for Induction: Premature Rupture of Membranes Onset of Labor: 03/29/2020 08:00 Complete Dilatation: 03/30/2020 18:25 Cervical Ripening Agents: Cervidil Other Ripening Agents: cervidil Oxytocin: Augmentation Group B Beta Strep: POSITIVE Antibiotics # of Doses: 8 Antibiotics Time of Last Dose: 1403 Name of Antibiotic Given: PCN Steroids Given: Full Course Reason Steroids Not Administered: Indication MEMBRANES Membranes Rupture Method: Spontaneous Rupture of Membranes: 03/29/2020 08:00 Length of Rupture (hr): 34.50 Amniotic Fluid Color: Clear Amniotic Fluid Amount: Small Amniotic Fluid Odor: Normal STAGES OF LABOR Stage 1 hr: 34 Stage 1 min: 25 Stage 2 hr: 0 Stage 2 min: 5 Stage 3 hr: 0 Stage 3 min: 3 Total Time in Labor hr: 34 Total Time in Labor min: 33 VAGINAL DELIVERY Episiotomy: None Laceration #1: None Laceration Repair: Not Applicable Sponge Count Correct: Yes Sharps Count Correct: Yes CSECTION DELIVERY Primary Indication: N/A Secondary Indication: N/A CSection Incidence: N/A Labor: N/A Elective: N/A CSection Incision: N/A BABY A INFORMATION Delivery Date/Time: 03/30/2020 18:30 Method of Delivery: Vaginal Born in Route : No : N/A Forceps: N/A Vacuum Extraction: N/A Shoulder Dystocia : No PRESENTATION/POSITION BABY A Presentation: Cephalic Cephalic Presentation: Vertex Vertex Position: Right Occipital Anterior Breech Presentation: N/A PLACENTA INFORMATION BABY A Placenta Delivery Time : 03/30/2020 18:33 Placenta Method of Delivery: Spontaneous Placenta Status: Delivered SCORES BABY A Heart Rate 1 min: >100 bpm Resp Effort 1 min: Good Cry Reflex Irritability 1 min: Cough or Sneeze or Pulls Away Muscle Tone 1 min: Active Motion Color 1 min: Body [place], Extremities Blue SCORE 1 MIN: 9 Heart Rate 5 min: >100 bpm Resp Effort 5 min: Good Cry Reflex Irritability 5 min: Cough or Sneeze or Pulls Away Muscle Tone 5 min: Active Motion Color 5 min: Body [place], Extremities Blue SCORE 5 MIN: 9 INFORMATION BABY A Gestational Age at Delivery: 34.3 Gestational Status: Late - 34- 36.6 Weeks Outcome : Liveborn Condition : Stable Infant Sex: Male IDENTIFICATION BABY A Verification Date/Time: 03/30/2020 19:06 ID Band Number: [id number] Mother's Name Verified: Yes Infant RN Verifying Infant: Himanshurtin,RN Additional Verifying Personnel: FABIOLA Espinosa WEIGHT/LENGTH BABY A Infant Birthweight (gm): 2344 Weight (lb): 5 Weight (oz): 3 Infant Length (in): 17.50 Infant Length (cm): 44.45 CORD INFORMATION BABY A No. Cord Vessels: 3 Nuchal Cord : N/A Cord Blood Taken: Yes-For Storage (Mom's Blood type +) Suction: None BABY B INFORMATION : N/A SIGNATURES Signature: with User ID: [email or web address] : Janie was personally available for consultation and serving as supervising physician for the MLP.
[2020-03-30] MEDS: FAMOTIDINE 20 MG TABLET PO SCH (22:56)
[2020-03-30] MEDS: IBUPROFEN 800 MG TABLET PO SCH (22:56)
[2020-03-31] MEDS: IBUPROFEN 800 MG TABLET PO SCH ×3 (05:57→21:34)
[2020-03-31 06:07] LABS: HEMATOCRIT 30.6 % (36.0-47.0); HEMOGLOBIN 9.8 g/dL (12.0-15.5); MEAN CORPUSCULAR HEMOGLOBIN 19.8 pg (27.0-33.4); MEAN CORPUSCULAR HGB CONC 31.9 g/dL (32.0-36.0); MEAN CORPUSCULAR VOLUME 62 fl (80-97); PLATELET COUNT 136 10^3/uL (150-450); RED BLOOD COUNT 4.93 10^6/uL (3.72-5.28); WHITE BLOOD COUNT 13.8 10^3/uL (4.0-10.5)
[2020-03-31] MEDS: DOCUSATE SODIUM 100 MG CAPSULE PO SCH ×2 (10:00→18:34)
[2020-03-31] MEDS: FAMOTIDINE 20 MG TABLET PO SCH ×2 (10:02→21:35)
[2020-03-31] MEDS: FERROUS SULFATE 325 MG TABLET PO SCH ×2 (10:02→18:34)
[2020-03-31] MEDS: SENNOSIDES/DOCUSATE 8.6-50 MG 1 EACH TABLET PO SCH (10:02)
[2020-03-31] MEDS: PRENATAL VITAMIN W DHA CAPSULE PO SCH (10:03)
[2020-03-31] MEDS: BENZOCAINE/MENTHOL AEROSOL SPRAY 56 ML TOP PRN ×2 (10:06→18:37)
--- NOTE | 2020-03-31 10:51 | PDOC PROGRESS REPORT ---
Subjective-OB Progress Note for:: 03/31/20 Subjective: reports bleeding slowing, pain controlled with current meds. denies needs. Physical Exam (OB) Vital Signs: Temp Pulse Resp BP Pulse Ox 97.8 F 71 16 105/49 L 100 03/31/20 07:25 03/31/20 07:25 03/31/20 07:25 03/31/20 07:25 03/31/20 07:25 Intake & Output 03/30/20 03/31/20 04/01/20 06:59 06:59 06:59 Intake Total 600 Balance 600 Weight 75.6 kg - Abdomen Description: Soft Hernia Present: No Fundal Description: Firm, Midline Fundal Height: u/3 - u/4 - Abdominal Distension: No distension Tenderness: Nontender - Extremities Lower extremities: Amy's sign - neg Calf: Normal, Nontender Objective-Diagnostic Laboratory: 03/31/20 05:50 03/31/20 05:50 WBC 13.8 H RBC 4.93 Hgb 9.8 L Hct 30.6 L MCV 62 L MCH 19.8 L MCHC 31.9 L RDW 18.0 H Plt Count 136 L Assessment and Plan(PN) - Assessment and Plan (1) delivery Is this a current diagnosis for this admission?: Yes (2) labor Is this a current diagnosis for this admission?: Yes (3) SROM (spontaneous rupture of membranes) Is this a current diagnosis for this admission?: Yes - Time Spent with Patient Time with patient: Less than 15 minutes - Disposition Anticipated Discharge: Home Within: within 24 hours
[2020-04-01] MEDS: IBUPROFEN 800 MG TABLET PO SCH ×2 (05:15→14:56)
[2020-04-01 09:00] VITALS: BP 102/45
--- NOTE | 2020-04-01 09:43 | PDOC DISCHARGE SUMMARY ---
Impression - Admit/DC Date/PCP Admission Date/Primary Care Provider: 03/29/20 09:50 ROHAN ALDRIDGE MD Discharge Date: 04/01/20 - Discharge Diagnosis (1) delivery Is this a current diagnosis for this admission?: Yes (2) labor Is this a current diagnosis for this admission?: Yes (3) SROM (spontaneous rupture of membranes) Is this a current diagnosis for this admission?: Yes - Additional Information Resuscitation Status: Full Code Discharge Diet: Regular Discharge Activity: Balance Activity w/Rest, Pelvic Rest Referrals: ROHAN ALDRIDGE MD [Primary Care Provider] - Home Medications: Pnv 102/Iron/Folate 1/Dss/Dha [Vitafol Fe+ Docusate Combo Pck] 1 each PO DAILY 03/26/20 HPI Gestational Age: 34 Reason(s) for Admission: Onset of Labor, PROM Procedures: NST Intrapartum Procedure(s): Spontaneous Vaginal Delivery Results Laboratory Results: WBC 13.8 10^3/uL (4.0-10.5) H 03/31/20 05:50 RBC 4.93 10^6/uL (3.72-5.28) 03/31/20 05:50 Hgb 9.8 g/dL (12.0-15.5) L 03/31/20 05:50 Hct 30.6 % (36.0-47.0) L 03/31/20 05:50 MCV 62 fl (80-97) L 03/31/20 05:50 MCH 19.8 pg (27.0-33.4) L 03/31/20 05:50 MCHC 31.9 g/dL (32.0-36.0) L 03/31/20 05:50 RDW 18.0 % (11.5-14.0) H 03/31/20 05:50 Plt Count 136 10^3/uL (150-450) L 03/31/20 05:50 Lymph % (Auto) 19.9 % (13-45) 03/29/20 10:31 [place] % (Auto) 10.4 % (3-13) 03/29/20 10:31 Eos % (Auto) 0.0 % (0-6) 03/29/20 10:31 Baso % (Auto) 0.2 % (0-2) 03/29/20 10:31 Absolute Neuts (auto) 7.5 10^3/uL (1.7-8.2) 03/29/20 10:31 Absolute Lymphs (auto) 2.2 10^3/uL (0.5-4.7) 03/29/20 10:31 Absolute Monos (auto) 1.1 10^3/uL (0.1-1.4) 03/29/20 10:31 Absolute Eos (auto) 0.0 10^3/uL (0.0-0.6) 03/29/20 10:31 Absolute Basos (auto) 0.0 10^3/uL (0.0-0.2) 03/29/20 10:31 Seg Neutrophils % 69.5 % (42-78) 03/29/20 10:31 Platelet Comment DECREASED 03/29/20 10:31 Polychromasia SLIGHT 03/29/20 10:31 Hypochromasia 2+ 03/29/20 10:31 Poikilocytosis 1+ 03/29/20 10:31 Basophilic Stippling PRESENT 03/29/20 10:31 Anisocytosis 1+ 03/29/20 10:31 Microcytosis 3+ 03/29/20 10:31 Tear Drop Cells SLIGHT 03/29/20 10:31 Ovalocytes 1+ 03/29/20 10:31 Urine Color YELLOW 03/29/20 09:13 Urine Appearance CLEAR 03/29/20 09:13 Urine pH 8.0 (5.0-9.0) 03/29/20 09:13 Ur Specific [place] 1.014 03/29/20 09:13 Urine Protein 30 mg/dL (NEGATIVE) H 03/29/20 09:13 Urine Glucose (UA) NEGATIVE mg/dL (NEGATIVE) 03/29/20 09:13 Urine Ketones TRACE mg/dL (NEGATIVE) H 03/29/20 09:13 Urine Blood NEGATIVE (NEGATIVE) 03/29/20 09:13 Urine Nitrite NEGATIVE (NEGATIVE) 03/29/20 09:13 Urine Bilirubin NEGATIVE (NEGATIVE) 03/29/20 09:13 Urine Urobilinogen 2.0 mg/dL (<2.0) H 03/29/20 09:13 Ur Leukocyte Esterase SMALL (NEGATIVE) H 03/29/20 09:13 Urine WBC (Auto) 12 /HPF 03/29/20 09:13 Urine RBC (Auto) 2 /HPF 03/29/20 09:13 Urine Bacteria (Auto) TRACE /HPF 03/29/20 09:13 Squamous Epi Cells Auto 7 /HPF 03/29/20 09:13 U Non-Squamous Epis Auto 1 /HPF 03/29/20 09:13 Urine Mucus (Auto) RARE /LPF 03/29/20 09:13 Urine Ascorbic Acid NEGATIVE (NEGATIVE) 03/29/20 09:13 Membranes Rupture POSITIVE (NEGATIVE) H 03/29/20 09:13 Urine Opiates Screen NEGATIVE 03/29/20 09:13 Urine Methadone Screen NEGATIVE 03/29/20 09:13 Ur Barbiturates Screen NEGATIVE 03/29/20 09:13 Ur Phencyclidine Scrn NEGATIVE 03/29/20 09:13 Ur Amphetamines Screen NEGATIVE 03/29/20 09:13 U Benzodiazepines Scrn NEGATIVE 03/29/20 09:13 Urine Cocaine Screen NEGATIVE 03/29/20 09:13 U Marijuana (THC) Screen NEGATIVE 03/29/20 09:13 Blood Type A POSITIVE 03/29/20 10:31 Antibody Screen NEGATIVE 03/29/20 10:31 Plan Plan of Treatment: f/u at [facility] in 4 wks Time Spent: Less than 30 Minutes
[2020-04-01] MEDS: SENNOSIDES/DOCUSATE 8.6-50 MG 1 EACH TABLET PO SCH (09:57)
[2020-04-01] MEDS: PRENATAL VITAMIN W DHA CAPSULE PO SCH (09:58)
[2020-04-01] MEDS: FERROUS SULFATE 325 MG TABLET PO SCH (09:58)
[2020-04-01] MEDS: DOCUSATE SODIUM 100 MG CAPSULE PO SCH (09:58)
[2020-04-01] MEDS: FAMOTIDINE 20 MG TABLET PO SCH (09:58)
[2020-04-01] MEDS ORDERED: DIPH/PERTUSS(ACELL)/TETANUS VAC/PF 0.5 ML SYR (>=10YO) IM PRN (14:30)
[2020-04-01] MEDS ORDERED: PROMETHAZINE HCL INJ 25 MG/1 ML VIAL IV PRN (14:30)
[2020-04-01] MEDS ORDERED: MEASLES,MUMPS&RUBELLA VACC/PF 0.5 ML VIAL SUBCUT PRN (14:30)
== END 2020-04-01 17:30 | disposition home or self-care (01) | DRG 806 ==
LOC: LC 08:58 → LR 09:50 → 2S 03-30 20:38
PROVIDERS: ADMIT Obstetrics & Gynecology; ATTEND Obstetrics & Gynecology
PROC: 10E0XZZ Delivery of Products of Conception, External Approach (ICD-10-PCS; principal; 2020-03-30)
DX: O42.113 Preterm premature rupture of membranes, onset of labor more than 24 hours following rupture, third trimester (principal); O63.9 Long labor, unspecified; Z37.0 Single live birth; O99.824 Streptococcus B carrier state complicating childbirth; Z3A.34 34 weeks gestation of pregnancy
CPT/HCPCS: 36415; 59025; 80307; 81001; 84112; 85025; 85027; 86592; 86850; 86900; 86901; 88307; C1758; J0690; J2300; J2540; J2550; J2590; J3490; J7060